=== PATIENT | female | born 1975 | race Asian ===

== ENCOUNTER 2021-09-27 23:40 | Emergency (ER) | payer OTHER ==
[~2021-09-27] VITALS: Ht 162.6 cm; Wt 90.7 kg
[2021-09-28 00:32] LABS: PLATELET COUNT 356 K/uL (152-353)
[2021-09-28 00:35] LABS: POTASSIUM 2.8 mmol/L (3.6-5.2)
[2021-09-28] MEDS ORDERED: IBU800 MG PO (00:43)
[2021-09-28] MEDS ORDERED: LORA0.5T17 PO (00:43)
[2021-09-28] MEDS ORDERED: HYZAAR1 TA1 PO (00:43)
[2021-09-28] MEDS ORDERED: PANTOPRAZOLE SO40 M1 PO (00:43)
[2021-09-28 02:45] VITALS: BP 100/60; TEMP 97.4
== END 2021-09-28 02:45 | disposition home or self-care (01) ==
LOC: ED 23:40
PROVIDERS: Emergency Medicine
DX: K29.20 Alcoholic gastritis without bleeding (principal); F10.129 Alcohol abuse with intoxication, unspecified; Y90.6 Blood alcohol level of 120-199 mg/100 ml; E87.6 Hypokalemia
CPT/HCPCS: 36415; 80053; 80320; 82150; 83690; 85027; 96360; 96365; 96375; 99284; J2405